=== PATIENT | female | born 1945 | race Caucasian/White ===

== ENCOUNTER 2017-04-02 07:30 | Inpatient (IN) | payer MEDICARE ==
[2017-04-02] MEDS ORDERED: Dextrose 5%-Lactated Ringers 1,000 ML IV SCH ×2 (12:00→15:30)
[2017-04-02] MEDS ORDERED: Rocuronium 50 MG/5 ML Vial ONE (12:04)
[2017-04-02] MEDS ORDERED: Glycopyrrolate 0.2 MG/ML 5 ML MDV ONE (12:04)
[2017-04-02] MEDS ORDERED: Succinylcholine 200 MG/10 ML MDV ONE (12:04)
[2017-04-02] MEDS ORDERED: Ondansetron 4 MG/2 ML SDV ONE (12:04)
[2017-04-02] MEDS ORDERED: Propofol 200 MG/20 ML SDV ONE (12:04)
[2017-04-02] MEDS ORDERED: Dexamethasone 4 MG/ML SDV ONE (12:04)
[2017-04-02] MEDS ORDERED: Neostigmine Methylsulfate 1 MG/ML 5 ML Syringe ONE (12:04)
[2017-04-02] MEDS ORDERED: Hydrocortisone Sodium Succinate 100 MG/2 ML SDV ONE (12:22)
[2017-04-02] MEDS ORDERED: ceFAZolin 2 GM in Sodium Chloride 0.9% 50 ML IV ONE (13:00)
[2017-04-02] MEDS ORDERED: HYDROmorphone/Normal Saline 15 MG/30 ML PCA IV SCH (13:30)
[2017-04-02] MEDS ORDERED: Naloxone 0.4 MG/ML SDV IV PRN (15:22)
[2017-04-02] MEDS ORDERED: Ondansetron 4 MG/2 ML SDV IVPUSH PRN (15:24)
[2017-04-02] MEDS ORDERED: Metoclopramide 10 MG/2 ML SDV IVPUSH PRN (15:24)
[2017-04-02] MEDS ORDERED: methylPREDNISolone Sodium Succinate 125 MG/2 ML SDV IVPUSH ONE (20:00)
[2017-04-02] MEDS: ceFAZolin 2 GM in Sodium Chloride 0.9% 50 ML IV SCH (21:19)
[2017-04-03] MEDS: ceFAZolin 2 GM in Sodium Chloride 0.9% 50 ML IV SCH ×2 (03:13→12:49)
[2017-04-03] MEDS ORDERED: Dextrose 5%-Lactated Ringers 1,000 ML IV SCH (07:29)
[2017-04-03] MEDS ORDERED: Levothyroxine 25 MCG Tab PO SCH (07:30)
[2017-04-03] MEDS ORDERED: Levothyroxine 100 MCG Tab PO SCH (07:30)
--- NOTE | 2017-04-03 07:34 | PCM.SURGPN ---
- General Info Date of Service: 04/03/17 Date of Surgery/Procedure: 04/02/17 POD#: 1 Post-Op Diagnosis: follicular neoplasm right thyroid Admission Diagnosis/Problem: Thyroidectomy Functional Status: Reports: Pain Controlled, Ambulating, Urinating - Review of Systems General: Reports: No Symptoms HEENT: Reports: No Symptoms Pulmonary: Reports: No Symptoms Cardiovascular: Reports: No Symptoms Gastrointestinal: Reports: No Symptoms Genitourinary: Reports: No Symptoms Musculoskeletal: Reports: No Symptoms Skin: Reports: No Symptoms Neurological: Reports: No Symptoms Psychiatric: Reports: No Symptoms Systems Review Comment:: Tabitha reports that she is feeling well. Pain is well controlled. She has had good urine output over the night and has tolerated ice chips. - Patient Data Vitals - Most Recent: Last Vital Signs Temp 36.2 C 04/03/17 07:14 Pulse 67 04/03/17 07:14 Resp 16 04/03/17 07:14 BP 146/70 H 04/03/17 07:14 Pulse Ox 94 L 04/03/17 07:14 Weight - Most Recent: 83.971 kg I&O - Last 24 Hours: Intake & Output 04/02/17 04/03/17 04/03/17 22:59 06:59 14:59 Intake Total 413 1420 Output Total 200 550 Balance 213 870 Lab Results Last 24 Hrs: Laboratory Results - last 24 hr 04/02/17 04/02/17 04/03/17 Range/Units 11:37 11:37 04:50 WBC 13.1 H (4.5-11.0) K/uL RBC 4.77 (3.30-5.50) M/uL Hgb 14.3 (12.0-15.0) g/dL Hct 43.5 (36.0-48.0) % MCV 91 (80-98) fL MCH 30 (27-31) pg MCHC 33 (32-36) % Plt Count 239 (150-400) K/uL Sodium 141 (140-148) mmol/L Potassium 4.3 (3.6-5.2) mmol/L Chloride 107 (100-108) mmol/L Carbon Dioxide 26 (21-32) mmol/L Anion Gap 7.6 (5.0-14.0) mmol/L BUN 10 (7-18) mg/dL Creatinine 0.8 (0.6-1.0) mg/dL Est Cr Clr Drug Dosing 58.88 mL/min Estimated GFR (MDRD) > 60 (>60) Glucose 150 H (74-106) mg/dL Calcium 8.2 L (8.5-10.1) mg/dL Phosphorus 3.6 4.1 (2.5-4.9) mg/dL Magnesium 2.1 1.9 (1.8-2.4) mg/dL Med Orders - Current: Current Medications Aspirin (Halfprin) 81 mg PO DAILY [facility] Hydromorphone HCl (Dilaudid Cobbler Sole 15 Mg In Ns 30 Ml) 15 mg IV ASDIRECTED [facility] PRN Reason: Protocol Last Admin: 04/02/17 13:37 Dose: 15 mg Dextrose/Lactated Ringer's (Dextrose 5%-Lactated Ringers) 1,000 mls @ 125 mls/ hr IV ASDIRECTED [facility] Last Admin: 04/02/17 23:27 Dose: 125 mls/hr Cefazolin Sodium 2 gm/ Sodium (Chloride) 50 mls @ 100 mls/hr IV Q8H [facility] Stop: 04/03/17 12:29 Last Admin: 04/03/17 03:13 Dose: 100 mls/hr Influenza Virus Vaccine (Fluzone High-Dose ) 180 mcg IM .ONCE ONE Stop: 04/03/17 16:01 Metoclopramide HCl (Reglan) 10 mg IVPUSH Q6H PRN PRN Reason: NAUSEA Naloxone HCl (Narcan) 0.1 mg IV ASDIRECTED PRN PRN Reason: decreased respiratory rate Ondansetron HCl (Zofran) 4 mg IVPUSH Q4H PRN PRN Reason: NAUSEA Prednisone 10 mg/ Prednisone 5 (mg) 15 mg PO DAILY [facility] Stop: 04/03/17 09:01 Prednisone (Prednisone) 10 mg PO DAILY [facility] Discontinued Medications Dexamethasone (Dexamethasone) Confirm Administered Dose 4 mg .ROUTE .STK-MED ONE Stop: 04/02/17 12:05 Fentanyl Citrate (Fentanyl) Confirm Administered Dose 500 mcg .ROUTE .STK-MED ONE Stop: 04/02/17 12:05 Glycopyrrolate (Robinul) Confirm Administered Dose 1 mg .ROUTE .STK-MED ONE Stop: 04/02/17 12:05 Hydrocortisone Sodium Succinate (Solu-Cortef) Confirm Administered Dose 100 mg .ROUTE .STK-MED ONE Stop: 04/02/17 12:23 Dextrose/Lactated Ringer's (Dextrose 5%-Lactated Ringers) 1,000 mls @ 100 mls/ hr IV ASDIRECTED [facility] Last Admin: 04/02/17 11:47 Dose: 100 mls/hr Cefazolin Sodium 2 gm/ Sodium (Chloride) 50 mls @ 100 mls/hr IV ONETIME ONE Stop: 04/02/17 13:29 Last Admin: 04/02/17 12:05 Dose: 100 mls/hr Methylprednisolone Sodium Succinate (Solu-Medrol) 60 mg IVPUSH ONETIME ONE Stop: 04/02/17 20:01 Last Admin: 04/02/17 21:19 Dose: 60 mg Neostigmine Methylsulfate (Neostigmine) Confirm Administered Dose 5 mg .ROUTE .STK-MED ONE Stop: 04/02/17 12:05 Ondansetron HCl (Zofran) Confirm Administered Dose 4 mg .ROUTE .STK-MED ONE Stop: 04/02/17 12:05 Propofol (Diprivan 20 Ml) Confirm Administered Dose 200 mg .ROUTE .STK-MED ONE Stop: 04/02/17 12:05 Rocuronium Garita (Zemuron) Confirm Administered Dose 50 mg .ROUTE .STK-MED ONE Stop: 04/02/17 12:05 Succinylcholine Chloride (Quelicin) Confirm Administered Dose 200 mg .ROUTE .STK -MED ONE Stop: 04/02/17 12:05 - Exam Wound/Incisions: Healing Well, Dressing Dry and Intact Quality Assessment: DVT Prophylaxis General: Alert, Oriented, No Acute Distress HEENT: Pupils Equal, Pupils Reactive Neck: Supple Lungs: Clear to Auscultation, Normal Respiratory Effort Cardiovascular: Regular Rate, Regular Rhythm, No Murmurs GI/Abdominal Exam: Soft, Non-Tender, No Organomegaly Extremities: Normal Inspection, Normal Range of Motion Skin: Warm, Dry, Intact Neurological: No New Focal Deficit, Normal Speech (voice is slightly raspy ) Psy/Mental Status: Alert, Normal Affect, Normal Mood - Problem List & Annotations (1) S/P thyroidectomy SNOMED Code(s): 081307566 Code(s): E89.0 - POSTPROCEDURAL HYPOTHYROIDISM Status: Acute Current Visit: Yes - Problem List Review Problem List Initiated/Reviewed/Updated: Yes - My Orders Last 24 Hours: Active Orders 24 hr Category Date Time Status Patient Status [ADT] Routine ADT 04/02/17 14:00 Active Ambulate [RC] QID Care 04/02/17 15:03 Active Communication Order [RC] ASDIRECTED Care 04/02/17 15:03 Active Head of Bed Elevation [RC] ASDIRECTED Care 04/02/17 15:03 Active IS (RT) [RT Incentive Spirometry] [RC] ASDIRECTED Care 04/02/17 11:30 Active Intake and Output [RC] QSHIFT Care 04/02/17 15:03 Active Overnight Pulse Oximetry [RC] Click to Edit Care 04/02/17 15:05 Active Up to Chair [RC] QID Care 04/02/17 15:03 Active Nothing Per Oral Diet [DIET] Diet 04/02/17 Dinner Active BASIC METABOLIC PANEL,BMP [CHEM] 1130 Lab 04/03/17 11:30 Ordered BASIC METABOLIC PANEL,BMP [CHEM] DAILY Lab 04/04/17 04:00 Ordered BASIC METABOLIC PANEL,BMP [CHEM] DAILY Lab 04/05/17 04:00 Ordered MAGNESIUM [CHEM] DAILY Lab 04/04/17 04:00 Ordered MAGNESIUM [CHEM] DAILY Lab 04/05/17 04:00 Ordered PHOSPHORUS [CHEM] DAILY Lab 04/04/17 04:00 Ordered PHOSPHORUS [CHEM] DAILY Lab 04/05/17 04:00 Ordered Aspirin [Halfprin] Med 04/03/17 09:00 Active 81 mg PO DAILY Dextrose 5%-Lactated Ringers 1,000 ml Med 04/02/17 15:30 Active IV ASDIRECTED FLU Vacc [id number](65YR UP)/PF [Fluzone High-Dose 2017- Med 04/03/17 16:00 Once 18] 180 mcg IM .ONCE ONE HYDROmorphone/Normal Saline [Dilaudid [employer] 15 MG in NS Med 04/02/17 13:30 Active 30 ML] 15 mg IV ASDIRECTED Metoclopramide [Reglan] Med 04/02/17 15:24 Active 10 mg IVPUSH Q6H PRN Naloxone [Narcan] Med 04/02/17 15:22 Active 0.1 mg IV ASDIRECTED PRN Ondansetron [Zofran] Med 04/02/17 15:24 Active 4 mg IVPUSH Q4H PRN Prednisone Med 04/03/17 09:00 Active 15 mg PO DAILY ceFAZolin [Ancef] 2 gm Med 04/02/17 20:00 Active Sodium Chloride 0.9% [Normal Saline] 50 ml IV Q8H predniSONE Med 04/04/17 09:00 Active 10 mg PO DAILY Pulse Oximetry Continuous Monitoring [OM.PC] Routine Oth 04/02/17 15:03 Ordered SCD [Sequential Compression Device] [OM.PC] Routine Oth 04/02/17 11:30 Ordered Medication Orders Aspirin (Halfprin) 81 mg PO DAILY [facility] Hydromorphone HCl (Dilaudid Cobbler Sole 15 Mg In Ns 30 Ml) 15 mg IV ASDIRECTED [facility] PRN Reason: Protocol Last Admin: 04/02/17 13:37 Dose: 15 mg Dextrose/Lactated Ringer's (Dextrose 5%-Lactated Ringers) 1,000 mls @ 125 mls/ hr IV ASDIRECTED [facility] Last Admin: 04/02/17 23:27 Dose: 125 mls/hr Cefazolin Sodium 2 gm/ Sodium (Chloride) 50 mls @ 100 mls/hr IV Q8H [facility] Stop: 04/03/17 12:29 Last Admin: 04/03/17 03:13 Dose: 100 mls/hr Admin: 04/02/17 21:19 Dose: 100 mls/hr Influenza Virus Vaccine (Fluzone High-Dose ) 180 mcg IM .ONCE ONE Stop: 04/03/17 16:01 Metoclopramide HCl (Reglan) 10 mg IVPUSH Q6H PRN PRN Reason: NAUSEA Naloxone HCl (Narcan) 0.1 mg IV ASDIRECTED PRN PRN Reason: decreased respiratory rate Ondansetron HCl (Zofran) 4 mg IVPUSH Q4H PRN PRN Reason: NAUSEA Prednisone 10 mg/ Prednisone 5 (mg) 15 mg PO DAILY [facility] Stop: 04/03/17 09:01 Prednisone (Prednisone) 10 mg PO DAILY [facility] - Assessment Assessment (Free Text/Narrative):: 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 - Plan Plan (Free Text/Narrative):: 1. Take down dressing. 2. Full liquid diet today. Advance as tolerated to regular. 3. Discontinue [employer]OR. [place] 325-5 mg 1-2 tab PO q 4 hours prn for pain. 4. Docusate Sodium (Colace) 100 mg PO BID. 5. Levothyroxine 125 mcg daily. 6. Prednisone 15 mg PO today. Prednisone 10 mg PO tomorrow (04/04/17). 7. Convert IV to saline lock. 8. BMP, Magnesium, Phosphorus daily until Saturday. She was educated on the signs and symptoms of hypocalemia and will notify nursing if she experiences any. YAA [employer] Student
[2017-04-03] MEDS: Levothyroxine 100 MCG, Levothyroxine 25 MCG PO SCH ×2 (08:45)
[2017-04-03] MEDS: Aspirin 81 MG Tab.EC PO SCH (08:47)
[2017-04-03] MEDS: Docusate Sodium 100 MG Cap PO SCH ×2 (08:47→21:07)
[2017-04-03] MEDS ORDERED: predniSONE 10 MG, predniSONE 5 MG PO SCH ×2 (09:00)
[2017-04-03] MEDS: Acetaminophen/HYDROcodone 325-5 MG Tab PO PRN ×2 (10:30→21:06)
[2017-04-04] MEDS ORDERED: Magnesium Hydroxide 400 MG/5 ML Susp 30 ML Cup PO PRN (07:17)
[2017-04-04 07:22] VITALS: BP 161/69
[2017-04-04] MEDS: Levothyroxine 100 MCG, Levothyroxine 25 MCG PO SCH ×2 (07:23)
--- NOTE | 2017-04-04 08:12 | DISCH ---
ADMISSION DIAGNOSES: Follicular neoplasm, right thyroid lobe carcinoma, and increased family history of hypothyroidism. DISCHARGE DIAGNOSIS: Total thyroidectomy, 04/02/2017. HISTORY: Tabitha Ladd is a 72-year-old female who had an enlarged thyroid. After preoperative evaluation including the fine-needle biopsy and discussion of possible risks and possible complications, she wished to proceed with surgical procedure. HOSPITAL COURSE: Tabitha had her surgery on 04/02/2017. She had no operative complications. On postop day #1, she was started on a full liquid diet, advanced to regular. She was started also on Synthroid 125 mcg and after she took the dose, she had flushing, which pharmacy was notified and it is a normal response in starting thyroid replacement. Her pain was well managed. Activity was good. She had adequate oral intake and able to be discharged to home on 04/04/2017. PHYSICAL EXAMINATION: GENERAL: Tabitha Ladd is a pleasant 72-year-old female. VITAL SIGNS: Height is 5 feet 4.9 inches, weight is 185 pounds. TPR is 96.8, 69, 14. Blood pressure 142/68. HEENT: Negative. NECK: Supple. Incision looks good. Steri-Strips are in place. Her voice is stronger today, a little bit hoarse, but overall improved. HEART: Regular rate and rhythm. LUNGS: Clear. ABDOMEN: Soft, nontender. EXTREMITIES: Without peripheral edema. DISPOSITION: Discharged to home. CONDITION: Stable and improving. FOLLOWUP APPOINTMENT: Ced Guthrie MD, on 04/10/2017 at 9:00 a.m. She is to come in at 08:15 a.m. for a CMP. MEDICATIONS: New prescriptions; [place] 5/325 mg 1-2 every 4 hours p.r.n. pain, #20; levothyroxine 125 mcg p.o. before breakfast, #100; milk of magnesia 30 mL to take 1 daily, 2 were sent home with the patient. She has to take this if no bowel movement. 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 DISCHARGE DIET: Usual diet as tolerated. ACTIVITIES: No lifting greater than 10 pounds for 6 weeks. Driving after discharge, do not drive while on pain medication. Shower/bathing, she may shower. PLAN: Notify provider if any fever, increased pain, drainage, nausea, or vomiting. Keep the site clean and dry. Leave Steri-Strips on until first appointment. If they fall off, leave off. If you develop any numbness or tingling around the mouth, to start taking Tums 2- 4 every 2 hours until symptoms go away and call the clinic.
[2017-04-04] MEDS ORDERED: predniSONE 10 MG Tab PO SCH (09:00)
--- NOTE | 2017-04-04 09:27 | OR ---
DATE OF PROCEDURE: 04/02/2017 PREOPERATIVE DIAGNOSES: 1. Fine-needle aspiration suspicious for follicular neoplasm, right thyroid lobe. 2. Family history of thyroid carcinoma. OPERATIVE PROCEDURE: Thyroid exploration with a total thyroidectomy (89016). ANESTHESIA: General. HIM CODER: Jennifer Cortez PA-C and EMANI Dhaliwal. INDICATION FOR PROCEDURE: This is a 72-year-old presenting with a set of thyroid nodules. A smaller nodule of about 1.5 cm on the left side was found to be benign, but on the right side, the 2.4 cm nodule was suspicious for a follicular neoplasm. Given this, the patient will undergo a right thyroid lobectomy and isthmusectomy. With the patient having nodularity on the left side, as well as extensive family history of thyroid carcinoma, if the resection is clean on the right side, we will proceed with a total lobectomy on the left side as well. If that dissection is somewhat difficult, i.e. if there is some concern regarding the parathyroid gland status or recurrent laryngeal nerve status, following the right lobectomy, we would do a subtotal lobectomy on the left. Potential risks of the procedure including bleeding, infection, injury to the recurrent laryngeal nerves, possible hypoparathyroidism postoperatively were gone over, and the patient wishes to proceed. DETAILS OF PROCEDURE: The patient was taken to the operating room and placed in a supine position. After general endotracheal anesthesia was induced, a roll was placed underneath the shoulders and the upper chest and neck areas were prepped and draped. A transverse collar incision was made and carried down through the skin and subcutaneous tissue and platysma layers. Subplatysmal flaps were then raised superiorly and inferiorly, and the midline fascia of the strap muscles was then divided. Initially, the strap muscles were reflected off of the right thyroid lobe. This was somewhat enlarged and somewhat firm, but otherwise, not too striking. There was quite a bit of edema around the lobe, particularly posteriorly. At that point, sequentially, the inferior and middle thyroid veins were divided using Harmonic scalpel, and the upper pole vessels were then taken likewise with Harmonic scalpel. This then allowed a medial mobilization of the thyroid lobe. The branches of the inferior thyroid artery were then taken directly onto thyroid capsule with Harmonic Scalpel, reflecting the two visible parathyroid glands away and maintaining their blood supply. There was a fair bit of inflammation and edema present, and a small bit of thyroid tissue was left attached to the inferior parathyroid gland, this being perhaps a 2 or 3 mm segment of thyroid tissue, as dissection of that would appear to interfere with the blood supply to the parathyroid gland. At that point, the remaining tracheal attachments were taken with Harmonic scalpel and the isthmus then divided on the left side, i.e. at the junction of the isthmus and left lobe, with Harmonic scalpel, and the right lobe and isthmus were then delivered from the field. The dissection overall appeared to be quite satisfactory on the right side. Both parathyroid glands appeared to have adequate blood supply, and the recurrent laryngeal nerve was visualized and noted to be intact, so we decided at that point to proceed with a total lobectomy on the left side. The similar division of the veins and arteries as described for the right was then accomplished. The parathyroid glands were once again reflected off the thyroid lobe, maintaining the blood supply, the remaining attachments of the lobe taken off of the trachea, and the specimen delivered from the field. The recurrent laryngeal nerve and parathyroids on this side were also confirmed to be intact and with adequate blood supply. At this point, no further problems were noted. There was good hemostasis present, and a drain was felt not to be necessary. The midline fascia was then approximated with a 3-0 Vicryl stitch, the platysmal layer with a 4-0 Vicryl stitch, and the skin with a 5-0 Vicryl subcuticular stitch. Dressing was applied. The patient was taken to the recovery room in satisfactory condition. She was noted to have a normal voice in the recovery room. Physician assistant vice president, Jennifer Cortez, played an essential role in assisting in this case, helping to position the patient, retract structures as needed, as well as suturing and cutting sutures as indicated. Her presence improved the patient's safety and decreased operative time. Ced Guthrie MD /[id number]
[2017-04-04] MEDS: Docusate Sodium 100 MG Cap PO SCH (09:57)
[2017-04-04] MEDS: Aspirin 81 MG Tab.EC PO SCH (09:57)
[2017-04-04] MEDS ORDERED: FLU Vacc TS 2017-18 (65yr UP)/PF 180 MCG/0.5 ML Syringe IM ONE (10:00)
== END 2017-04-04 10:30 | disposition home or self-care (01) | DRG 627 ==
LOC: EDSTATUS 07:30 → JP.MS 11:15 → JP.SDS 11:15 → JP.MS 14:00
PROVIDERS: ADMIT Surgery; ATTEND Surgery
PROC: 0GTG0ZZ Resection of Left Thyroid Gland Lobe, Open Approach (ICD-10-PCS; principal; 2017-04-02)
PROC: 0GTH0ZZ Resection of Right Thyroid Gland Lobe, Open Approach (ICD-10-PCS; principal; 2017-04-02)
DX: C73 Malignant neoplasm of thyroid gland (principal); Z80.8 Family history of malignant neoplasm of other organs or systems; E78.5 Hyperlipidemia, unspecified; Z23 Encounter for immunization; Z87.891 Personal history of nicotine dependence; Z88.2 Allergy status to sulfonamides
CPT/HCPCS: 36415; 80048; 83735; 84100; 85027; 88307; 88321; 90662; 94762; A9270-GY; J0330; J0690; J1100; J1170; J1720; J2405; J2704; J2710; J2930; J3010; J7042; J7050